=== PATIENT | female | born 1980 | race African-American/Black ===

== ENCOUNTER 2016-05-27 13:33 | Emergency (ER) | payer OTHER ==
--- NOTE | ~2016-05-27 | CT4 ---
[facility] A Service of [facility] RADIOLOGY TEXT RESULTS PATIENT: YAEL LOPEZ LOCATION: [facility] : [birth year] UNIT #: [id number] AGE: [address]: Stas Pillai MD SEX: F ORDER DR: [id number] [facility] [address] [place], [place] [address] [id number] E MR#: [id number] Acc #: [id number] NAME: YAEL LOPEZ. : 1980 SEX: F STUDY DATE/TIME: 05/27/2016 15:22 UNIT: [facility] ROOM: STUDY DESCRIPTION: CT Abd and Pelv Wo Cont Attending Physician: Stas Pillai M.D. Referring Physician: [facility] Ordering Physician: Brenden Chavarria M.D. Primary Care Physician: [facility] MEDICAL IMAGING REPORT This report is preliminary unless electronic signature is present EXAM CT abdomen and pelvis without contrast, 05/27/2016 INDICATION Upper abdominal pain and swelling for the past [address] of the abdomen and pelvis. This CT exam was performed with one or more of the following radiation dose reduction techniques: automatic exposure control, adjustment of mA and/or kV according to patient size, and iterative reconstruction. COMPARISON 10/27/2012 FINDINGS ABDOMEN WITHOUT CONTRAST: Included lung base is clear. The liver, spleen, kidneys, adrenal glands, pancreas and gallbladder have an unremarkable unenhanced appearance. Bowel loops are nondilated. Appendix is nondilated. PELVIS WITHOUT CONTRAST: Small amount of fluid in the pelvis. No pelvic mass. No aggressive-appearing bone lesion. IMPRESSION No acute findings in the abdomen or pelvis. Small amount of fluid in the pelvis, within physiologic limits for the patient's age. [facility] A Service [facility] RADIOLOGY TEXT RESULTS PATIENT: YAEL LOPEZ LOCATION: [facility] : 82 UNIT #: [id number] AGE: [address]: Stas Pillai MD SEX: F ORDER DR: Dictated by... Yrn Avila M.D. THIS IS AN ELECTRONICALLY VERIFIED REPORT Yrn Avila M.D. at 05/28/2016 7:35 AM FELYD/lacy TD: 05/27/2016 21:46 JOB #: [id number] MEDICAL IMAGING REPORT Page 1 of 1 COPY
[2016-05-27 13:00] LABS: BASOPHIL% 0.5 % (0-2.5); HEMATOCRIT 41.8 % (35.0-45.0); HEMOGLOBIN 14.1 gm/dL (12.0-16.0); LYMPHOCYTE# 0.4 X10e3 (1.0-3.5); LYMPHOCYTE% 5.1 % (17.0-45.0); MEAN CORPUSCULAR HEMOGLOBIN 31.3 PG (28-34); MEAN CORPUSCULAR HGB CONC 33.6 g/dL (30-36); MEAN PLATELET VOLUME 10.5 FL (6.5-11.5); MONOCYTE# 0.5 X10e3 (0-1.0); MONOCYTE% 5.2 % (3.0-12.0); NEUTROPHIL# 7.8 X10e3 (1.5-7.1); NEUTROPHIL% 89.2 % (40-75); WHITE BLOOD COUNT 8.7 X10e3 (4.0-10.5)
[2016-05-27 13:12] LABS: DIFF IND YES; PLATELET COUNT 129 X10e3 (140-420)
[2016-05-27 13:13] LABS: ANISOCYTOSIS SL; PLATELET ESTIMATE DECREASED (NORMAL)
[~2016-05-27 13:33] MED LIST: ALBUTEROL17 GM INH; AMOXICILLIN PO; DOXYCYCLINE HY100 M1 PO; FLAGYL PO; FLONASE16 GM; IBUPROFEN PO; NAPROXEN PO; PEPCID AC20 M2 PO; PHENERGAN25 M1 DOB; PHENERGAN25 MG PO; VOLTAREN50 MG PO; ZITHROMAX PO; ZOFRAN PO
[2016-05-27 13:47] LABS: ALBUMIN SERUM 4.7 g/dL (3.5-5.0); BILIRUBIN, DIRECT 0.1 mg/dL (0.0-0.2); BILIRUBIN,INDIRECT 0.1 mg/dL (0.0-0.9); BILIRUBIN,TOTAL 0.2 mg/dL (0.2-2.0); BUN/CREATININE RATIO 8.75; CALCIUM SERUM 9.2 mg/dL (8.4-10.2); CREATININE SERUM 0.8 mg/dL (0.6-1.4); GLOM FILT RATE Estimated 110.8 mL/min (>60); POTASSIUM 3.7 mmol/L (3.5-5.1)
[2016-05-27 14:38] LABS: URINE SOURCE CLEAN CATCH
[2016-05-27 14:47] LABS: URINE APPEARANCE CLEAR; URINE BILIRUBIN NEG (NEG); URINE BLOOD 3+ (NEG); URINE COLOR YELLOW; URINE GLUCOSE NEG (NEG); URINE KETONE NEG (NEG); URINE LEUKOCYTE ESTERASE NEG (NEG); URINE NITRATE NEG (NEG); URINE PROTEIN NEG (NEG); URINE SPECIFIC GRAVITY 1.012 (1.003-1.035); URINE UROBILINOGEN 0.2 MG/DL (NEG)
[2016-05-27 14:50] LABS: U HYALINE CASTS AUWI 0-2 /[LPF]; URINE BACTERIA AUWI NEG (NEGATIVE); URINE SQUAMOUS EPITHELIAL CELL NONE SEEN /[HPF]; UWBCS1 AUWI 0-2 (0-5)
[2016-05-27 15:04] LABS: CULTURE INDICATED? NO
== END 2016-05-27 18:27 | disposition home or self-care (01) ==
LOC: CED 13:33
PROVIDERS: Emergency Medicine
DX: R10.13 Epigastric pain (principal); R11.2 Nausea with vomiting, unspecified
CPT/HCPCS: 36415; 74176; 80048; 80076; 81003; 82150; 83690; 84703; 85025; 96361; 96374; 96375; 99284; J1170; J2405

== ENCOUNTER 2016-06-26 15:15 | Emergency (ER) | payer OTHER ==
--- NOTE | ~2016-06-26 | US134 ---
[facility] A Service of [facility] RADIOLOGY TEXT RESULTS PATIENT: YAEL LOPEZ LOCATION: [facility] : 82 UNIT #: [id number] AGE: [address]: Petra Kruse APRN SEX: F ORDER DR: [id number] [facility] [address] [place], [place] [address] [id number] E MR#: [id number] Acc #: [id number] NAME: YAEL LOPEZ. : 1980 SEX: F STUDY DATE/TIME: 06/26/2016 16:57 UNIT: [facility] ROOM: STUDY DESCRIPTION: US Transvaginal Attending Physician: Petra Kruse A.P.R.N. Ordering Physician: Ed Dexter Matos M.D. Primary Care Physician: [facility] MEDICAL IMAGING REPORT This report is preliminary unless electronic signature is present EXAM Pelvic ultrasound 06/26/2016 performed transvaginally. INDICATIONS 36-year-old female with pelvic pain for 3 days. Last menstrual period 05/23/2015. History of ectopic in July 2015. History of left salpingectomy. Descending colon. Bilateral pelvic pain. TECHNIQUE Sonographic imaging of the pelvis was performed transvaginally. COMPARISON No relevant comparisons. Correlation is made with CT 05/27/2016 FINDINGS Transvaginal imaging: Beta hCG not available or performed at time of study interpretation. The uterus measures about 5.6 x 3.4 x 4.4 cm. Endometrial stripe measures 2 mm. The right ovary measures 1.9 x 4.2 x 2.1 cm and there are small follicles present. There is good flow in the right ovary. The left ovary measures about 3.9 x 5.3 x 2.5 cm and also demonstrates good flow at the time of the study. There are follicles in both ovaries. The technologist placed calipers upon a soft tissue echogenicity region intimately associated with right ovary, felt to represent a part of the right ovary itself or perhaps it is a hemorrhagic or proteinaceous cyst. In the left ovary there is a hemorrhagic or proteinaceous cyst measuring 3.1 x 2.5 cm. Suggest interval followup ultrasound in 6-8 weeks for reassessment of the ovaries to document stability or decrease in size of these probably physiologic findings bilaterally. There is a small amount of free fluid in the pelvis, preferentially STS. [facility] A Service of [facility] RADIOLOGY TEXT RESULTS PATIENT: YAEL LOPEZ LOCATION: [facility] : 82 UNIT #: [id number] AGE: [address]: Petra Kruse APRN SEX: F ORDER DR: localizing posteriorly and to the left of midline. IMPRESSION 1. No beta HCG was performed or available at time of study interpretation. 2. The uterus appears unremarkable. There is no endometrial thickening. 3. Ovaries demonstrate good flow bilaterally and there is a small amount of free fluid in the pelvis. 4. There is a hemorrhagic or proteinaceous cyst in the left ovary measuring up to 3.1 cm. Equivocal secondary proteinaceous or hemorrhagic cyst in the right ovary or simply volume averaging of the right ovary by the technologist as described above. These findings are felt to be physiologic but a followup ultrasound in 6-8 weeks after subsequent menstrual cycles is recommended to reassess stability or decrease in size of these findings. Dictated by... Jamie Rajput M.D. THIS IS AN ELECTRONICALLY VERIFIED REPORT Jamie Rajput M.D. at 06/27/2016 7:27 AM RAMSES/shyanne TD: 06/26/2016 19:50 JOB #: [id number] MEDICAL IMAGING REPORT Page 1 of 1 COPY
[2016-06-26 14:42] LABS: URINE SOURCE CLEAN CATCH
[2016-06-26 14:46] LABS: URINE BILIRUBIN NEG (NEG); URINE BLOOD 3+ (NEG); URINE COLOR YELLOW; URINE GLUCOSE NEG (NEG); URINE KETONE NEG (NEG); URINE LEUKOCYTE ESTERASE 1+ (NEG); URINE NITRATE NEG (NEG); URINE PROTEIN NEG (NEG)
[2016-06-26 14:49] LABS: CULTURE INDICATED? YES; URINE BACTERIA AUWI 1+ (NEGATIVE); URINE SQUAMOUS EPITHELIAL CELL FEW /[HPF]
[2016-06-26 15:07] LABS: URINE APPEARANCE HAZY; URINE MUCUS PRESENT
[2016-06-26 15:14] LABS: BASOPHIL% 0.6 % (0-2.5); EOSINOPHIL% 0.1 % (0.0-7.0); HEMATOCRIT 41.7 % (35.0-45.0); HEMOGLOBIN 13.9 gm/dL (12.0-16.0); LYMPHOCYTE# 0.5 X10e3 (1.0-3.5); LYMPHOCYTE% 8.2 % (17.0-45.0); MEAN CELL VOLUME 93.1 FL (83-96); MEAN CORPUSCULAR HGB CONC 33.3 g/dL (30-36); MEAN PLATELET VOLUME 10.6 FL (6.5-11.5); MONOCYTE# 0.3 X10e3 (0-1.0); MONOCYTE% 5.9 % (3.0-12.0); NEUTROPHIL% 85.2 % (40-75); PLATELET COUNT 141 X10e3 (140-420); RED BLOOD COUNT 4.48 X10e (3.90-5.30); RED CELL DISTRIBUTION WIDTH 13.6 % (11.0-15.5); WHITE BLOOD COUNT 5.9 X10e3 (4.0-10.5)
[2016-06-26 15:15] LABS: DIFF IND YES
[2016-06-26 15:36] LABS: ALBUMIN SERUM 4.5 g/dL (3.5-5.0); BILIRUBIN,TOTAL 0.3 mg/dL (0.2-2.0); BUN/CREATININE RATIO 7.5; CALCIUM SERUM 9.2 mg/dL (8.4-10.2); CREATININE SERUM 0.8 mg/dL (0.6-1.4); GLOM FILT RATE Estimated 110.8 mL/min (>60); PLATELET ESTIMATE NORMAL (NORMAL); POTASSIUM 3.7 mmol/L (3.5-5.1)
[2016-06-29 20:05] LABS: CHLAMYDIA TRACH Not Detected (Not Detected); N GONOR Not Detected (Not Detected)
== END 2016-06-26 18:41 | disposition home or self-care (01) ==
LOC: CED 15:15
PROVIDERS: Nurse Practitioner
DX: N30.00 Acute cystitis without hematuria (principal); F17.210 Nicotine dependence, cigarettes, uncomplicated; N83.202 Unspecified ovarian cyst, left side; N83.201 Unspecified ovarian cyst, right side
CPT/HCPCS: 36415; 76830; 80053; 81003; 83690; 84703; 85025; 87086; 87088; 87186; 87491; 87591; 87808; 87905; 96361; 96374; 99284; J1885; J2405

== ENCOUNTER 2016-10-08 16:28 | Emergency (ER) | payer OTHER ==
[~2016-10-08] VITALS: Ht 165.1 cm; Wt 59.9 kg
[2016-10-08 18:12] LABS: BASOPHIL% 0.7 % (0-2.5); EOSINOPHIL% 0.4 % (0.0-7.0); LYMPHOCYTE# 0.9 X10e3 (1.0-3.5); LYMPHOCYTE% 16.4 % (17.0-45.0); MEAN CELL VOLUME 92.3 FL (83-96); MEAN CORPUSCULAR HEMOGLOBIN 31.4 PG (28-34); MONOCYTE# 0.6 X10e3 (0-1.0); MONOCYTE% 10.8 % (3.0-12.0); NEUTROPHIL# 3.8 X10e3 (1.5-7.1); NEUTROPHIL% 71.7 % (40-75); RED BLOOD COUNT 4.77 X10e (3.90-5.30); RED CELL DISTRIBUTION WIDTH 14.2 % (11.0-15.5); WHITE BLOOD COUNT 5.3 X10e3 (4.0-10.5)
[2016-10-08 18:27] LABS: ALBUMIN SERUM 4.6 g/dL (3.5-5.0); BILIRUBIN, DIRECT 0.1 mg/dL (0.0-0.2); BILIRUBIN,INDIRECT 0.4 mg/dL (0.0-0.9); BILIRUBIN,TOTAL 0.5 mg/dL (0.2-2.0); CALCIUM SERUM 9.5 mg/dL (8.4-10.2); CREATININE SERUM 0.8 mg/dL (0.6-1.4); GLOM FILT RATE Estimated 110.8 mL/min (>60); POTASSIUM 3.4 mmol/L (3.5-5.1); PROTEIN TOTAL SERUM 8.3 g/dL (6.0-8.3)
[2016-10-08 18:30] LABS: DIFF IND NO; PLATELET COUNT 125 X10e3 (140-420)
== END 2016-10-08 20:52 | disposition left against medical advice (07) ==
LOC: CED 16:28
DX: Z53.21 Procedure and treatment not carried out due to patient leaving prior to being seen by health care provider (principal)
CPT/HCPCS: 80048; 80076; 83690; 85025